=== PATIENT | female | born 1990 | race Caucasian/White ===

== ENCOUNTER 2019-08-23 22:01 | Emergency (ER) | payer MEDICAID ==
[~2019-08-23] VITALS: Ht 162.6 cm; Wt 62.0 kg
[2019-08-23] MEDS ORDERED: SODIUM CHLORIDE 0.9% 1,000 ML IV ONE (22:28)
[2019-08-23] MEDS ORDERED: LORAZEPAM 2MG/ML CPJ IV STA (22:28)
[2019-08-23 23:39] LABS: BASOPHILS % 0.5 % (0.0-2.0); EOSINOPHILS % 2.2 % (0.0-5.0); HEMATOCRIT. 35.7 % (36.0-48.0); HEMOGLOBIN. 12.2 g/dL (12.0-16.0); LYMPHOCYTES % 26.1 % (20.0-50.0); MEAN CORPUSCULAR HEMOGLOBIN 29.5 pg (28.0-32.0); MEAN CORPUSCULAR VOLUME 86.2 fL (81.0-99.0); MEAN PLATELET VOLUME 8.4 fl (7.4-10.4); MONOCYTES % 13.7 % (2.0-8.0); NEUTROPHILS % 57.5 % (40.0-76.0); PLATELET 345 x1000/uL (130-400); RED BLOOD CELL COUNT 4.14 mill/uL (4.2-5.4); RED CELL DISTRIBUTION WIDTH 17.2 % (11.6-14.6)
[2019-08-23 23:51] LABS: CHLORIDE 106 mEq/L (98-107)
[2019-08-23 23:54] LABS: HCG SCREEN POSITIVE
[2019-08-23 23:57] LABS: ETHANOL BLOOD < 10 mg/dL
[2019-08-24] LABS: CLARITY URINE CLOUDY (CLEAR); COLOR URINE YELLOW (YELLOW); KETONES URINE NEGATIVE (NEGATIVE); LEUKOCYTE ESTERASE URINE 1+ (NEGATIVE); NITRITE URINE NEGATIVE (NEGATIVE); OCCULT BLOOD URINE NEGATIVE (NEGATIVE); PH URINE 5.5 (4.5-8.0); PROTEIN URINE TRACE (NEGATIVE); SPECIFIC GRAVITY URINE 1.031 (1.005-1.030)
[2019-08-24 00:16] LABS: *BARBITURATES SCREEN URINE NEGATIVE (NEGATIVE); *BENZODIAZEPINES SCREEN URINE NEGATIVE (NEGATIVE); *COCAINE SCREEN URINE NEGATIVE (NEGATIVE); METHADONE URINE SCREEN NEGATIVE (NEGATIVE); OPIATES URINE SCREEN NEGATIVE (NEGATIVE)
[2019-08-24 00:17] LABS: PHENCYCLIDINE URINE SCREEN NEGATIVE (NEGATIVE)
[2019-08-24 00:23] LABS: *AMPHETAMINES SCREEN URINE PRESUMTIVE POSITIVE (NEGATIVE); CANNABINOID URINE SCREEN PRESUMTIVE POSITIVE (NEGATIVE)
[2019-08-24] MEDS ORDERED: CEFTRIAXONE 1 G PREMIX 50 ML IV ONE (01:15)
[2019-08-24 12:09] VITALS: BP 101/52
== END 2019-08-24 12:10 | disposition home or self-care (01) ==
LOC: EDBD 22:01 → ER 22:01
DX: O99.321 Drug use complicating pregnancy, first trimester (principal); F15.10 Other stimulant abuse, uncomplicated; O23.41 Unspecified infection of urinary tract in pregnancy, first trimester; F16.10 Hallucinogen abuse, uncomplicated; F12.10 Cannabis abuse, uncomplicated; Z3A.14 14 weeks gestation of pregnancy
CPT/HCPCS: 36415; 76801; 80053; 80305; 80307; 80320; 80329; 81003; 84702; 84703; 85025; 87086; 96361; 96365; 99284; J0696; J7030; Z7610; J2060; G0480